=== PATIENT | male | born 1955 | race Caucasian/White ===

== ENCOUNTER 2017-04-06 08:22 | Emergency (ER) | payer OTHER ==
--- NOTE | 2017-04-06 08:36 | ED GENERAL ADULT ---
See Addendum History of Present Illness General Chief Complaint: Fall Stated Complaint: FALL LFT KNEE SURG LAST WEEK AT [facility] Source: patient Exam Limitations: no limitations Vital Signs & Intake/Output Vital Signs & Intake/Output Vital Signs Date Time Temp Pulse Resp B/P B/P Pulse O2 O2 Flow FiO2 Mean Ox Delivery Rate 04/06 1208 97.2 80 18 101/57 96 Room Air 04/06 1039 96.2 75 18 104/66 96 Room Air 04/06 0922 97.2 78 22 108/64 96 Room Air 04/06 0842 Room Air Room Air 04/06 0827 98.4 85 16 100/60 97 Room Air Allergies Coded Allergies: No Known Allergies (04/06/17) Reconcile Medications Acetaminophen 500 MG TABLET 2 TAB PO Q8P PRN PAIN (Reported) Ascorbate Calcium (Vitamin C) 500 MG TABLET 1 TAB PO BID VITAMIN SUPPORT ( Reported) Aspirin (Ecotrin*) 81 MG TABLET.DR 1 TAB PO DAILY HEART HEALTH (Reported) Ipratropium Anson 21 MCG (0.03 %) SPRAY 2 SPRAY ROLANDO BID BREATHING PROBLEMS (Reported) Meloxicam 15 MG TABLET 1 TAB PO DAILY PAIN (Reported) Methocarbamol (Robaxin-750) 750 MG TABLET 1 TAB PO TID MUSCLE SPASMS ( Reported) Multivitamin (Daily Multiple Vitamin) 1 EACH TABLET 1 TAB PO DAILY VITAMIN SUPPORT (Reported) Oxycodone HCl 5 MG TABLET 1-2 TAB PO Q4 HRS NEEDED PRN PAIN (Reported) Sennosides/Docusate Sodium (Senna Plus Tablet) 8.6 MG-50 MG TABLET 1-2 TAB PO BIDP PRN CONSTIPATION (Reported) Triage Note: PT TO ED S/P FALL OUTSIDE. STATES HE HAD LT KNEE SURGERY ON Mar AT [facility]. REPORTS HE HAS BEEN DOING RANGE OF MOTION AND WHEN HE FELL, FELT LIKE HIS KNEE WENT PAST 90 DEGREES AND THE WOUND SPLIT OPEN. NOT VISUALIZED IN TRIAGE. PT CALLED SURGEON AND TOLD TO GO TO [facility], BUT EASIER TO COME HERE FIRST TO SEE IF IT NEEDS TO BE CUT OPEN. Triage Nurses Notes Reviewed? yes Onset: Abrupt Duration: hour(s): Timing: recent history HPI: 04/06/17 9:29 AM 61-year-old male presents to the emergency department for left knee pain. The patient is status post left knee replacement by Dr. Hinds at [facility] approximately one week ago. He was doing well and in fact they were canceling his physical therapy. This morning at approximately 8:30 AM he slipped on the ice and flexed his knee. The wound opened and he had increasing pain and felt knee instability. He denies head injury neck pain or other complaints. The onset of the symptoms was abrupt, the duration was just this morning, the severity is significant; as his symptoms required him to come to the emergency department for care. Past History Travel History Traveled to [facility] past 21 day No Medical History Any Pertinent Medical History? see below for history Musculoskeletal: chronic back pain, sciatica Surgical History Surgical History: s/p left knee replacement Psychosocial History What is your primary language Setswana Tobacco Use: Never used Family History Hx Contributory? No Review of Systems Review of Systems Constitutional: Denies: fever. EENTM: Reports: no symptoms. Respiratory: Denies: short of breath. Cardiovascular: Denies: chest pain. GI: Reports: no symptoms. Genitourinary: Reports: no symptoms. Musculoskeletal: Reports: see HPI. Skin: Reports: see HPI. Neurological/Psychological: Reports: no symptoms. Hematologic/Endocrine: Reports: see HPI. Immunologic/Allergic: Reports: no symptoms. Physical Exam Physical Exam General Appearance: well developed/nourished, alert, awake, anxious, mild distress Head: atraumatic, normal appearance Eyes: Bilateral: normal appearance, PERRL, EOMI. Ears, Nose, Throat: normal pharynx, normal ENT inspection Neck: normal inspection, supple, full range of motion Respiratory: normal breath sounds, chest non-tender, no respiratory distress Cardiovascular: regular rate/rhythm Peripheral Pulses: 4+ dorsalis pedis (L) Gastrointestinal: non-tender Back: decreased range of motion Extremities: tenderness Neurologic/Psych: no motor/sensory deficits, awake, alert, oriented x 3 Skin: open lac left knee Comments: Physical examination of the left knee reveals ecchymosis to the left leg. He has an excellent left dorsalis pedis pulse. He has full range of motion to the left knee. There is no objective ligament instability. He does have a healing postop wound. There is some minimal dehiscence in the superior aspect. Steri- Strips were applied and a pressure dressing. Core Measures ACS in differential dx? No CVA/TIA Diagnosis: No Sepsis Present: No Sepsis Focused Exam Completed? No Progress Differential Diagnoses I considered the following diagnoses in my evaluation of the patient: [Fracture, dislocation, ligament injury] Plan of Care: Orders Procedure Date/time Status CASE MANAGEMENT CONSULT 04/06 1037 Active Durable Medical Equipment 04/06 1000 Active Initial ED EKG: none Departure Departure Disposition: STILL A PATIENT Condition: Stable Clinical Impression Primary Impression: Knee injury Referrals: Napoleon RADER,Yunior Oliveira (PCP/Family) Departure Forms: Customer Survey General Discharge Information Comments PATIENT: RENETTA PETERSON JR PRESENT AGE: 61 PATIENT ACCOUNT NO: [id number] : 56 LOCATION: [facility] ORDERING PHYSICIAN: Dewayne Ruiz DO SERVICE DATE: 04/06/17 EXAM TYPE: RAD - XRY-KNEE COMPLETE LEFT EXAMINATION: XR KNEE, LEFT CLINICAL INFORMATION: Fall, status post knee replacement one week ago. COMPARISON: None TECHNIQUE: Four views of the left knee. FINDINGS: Soft tissue swelling is demonstrated in the distal thigh and proximal calf with mild anterior subcutaneous emphysema in this postoperative patient. Alignment of the tricompartmental total knee arthroplasty is normal. No acute fracture or dislocation. IMPRESSION: Mild soft tissue swelling and mild residual anterior subcutaneous emphysema; correlate with any signs of infection versus postoperative change. No acute osseous findings. Normal alignment of the tricompartmental total knee arthroplasty. DICTATED BY: Jeffrey Gilmore MD DATE/TIME DICTATED:04/06/17927 SPRAY MACHINE OPERATOR:NICK DATE/TIME TRANSCRIBED:04/06/17927 CONFIDENTIAL, DO NOT COPY WITHOUT APPROPRIATE AUTHORIZATION. <Electronically signed in Other Vendor System> SIGNED BY: Jeffrey Gilmore MD 04/06/17 0934 IMPRESSION: Normal alignment. Soft tissue swelling. Corticated changes at the medial malleolus and linear density without swelling dorsal to the talus are likely sequela of prior injury. No discrete additional fractures are seen. DICTATED BY: Jeffrey Gilmore MD DATE/TIME DICTATED:04/06/171137 SPRAY MACHINE OPERATOR:GEORGE DATE/TIME TRANSCRIBED:04/06/171137 CONFIDENTIAL, DO NOT COPY WITHOUT APPROPRIATE AUTHORIZATION. <Electronically signed in Other Vendor System> SIGNED BY: Jeffrey Gilmore MD 04/06/17 1144 04/06/17 Dr. Hinds's PA Ramos called me back and requested that we transfer the patient to [place] for to take the patient to the OR washout the left knee. Critical Care Note Critical Care Note Critical Care Time: non-applicable
[2017-04-06] MEDS ORDERED: ACETAMINOPHEN500 M4 PO (08:45)
[2017-04-06] MEDS ORDERED: VITAMIN C500 M6 PO (08:46)
[2017-04-06] MEDS ORDERED: ASPIRIN EC81 M1 PO (08:47)
[2017-04-06] MEDS ORDERED: OXYCODONE HCL5 M1 PO (08:48)
[2017-04-06] MEDS ORDERED: ROBAXIN-750750 M1 PO (08:48)
[2017-04-06] MEDS ORDERED: DAILY MULTIPLE1 EACH PO (08:49)
[2017-04-06] MEDS ORDERED: SENNA PLUS TAB1 EACH PO (08:49)
[2017-04-06] MEDS ORDERED: MELOXICAM15 M1 PO (08:51)
[2017-04-06] MEDS ORDERED: IPRATROPIUM BRO30 M2 NAS (08:52)
--- NOTE | 2017-04-06 09:34 | RADIOLOGY REPORT ---
EXAMINATION: XR KNEE, LEFT CLINICAL INFORMATION: Fall, status post knee replacement one week ago. COMPARISON: None TECHNIQUE: Four views of the left knee. FINDINGS: Soft tissue swelling is demonstrated in the distal thigh and proximal calf with mild anterior subcutaneous emphysema in this postoperative patient. Alignment of the tricompartmental total knee arthroplasty is normal. No acute fracture or dislocation. IMPRESSION: Mild soft tissue swelling and mild residual anterior subcutaneous emphysema; correlate with any signs of infection versus postoperative change. No acute osseous findings. Normal alignment of the tricompartmental total knee arthroplasty.
--- NOTE | 2017-04-06 11:44 | RADIOLOGY REPORT ---
EXAMINATION: XR ANKLE, LEFT CLINICAL INFORMATION: Left ankle pain. Rule out fracture. COMPARISON: None TECHNIQUE: 3 views of the left ankle. FINDINGS: Prior healed fracture of the distal tibial diaphysis with solid bridging callus. Corticated densities are seen at the tip of the medial malleolus presumably reflective of prior trauma. The ankle mortise is symmetric. No acute ankle fracture or dislocation is seen. A corticated fracture fragment is identified dorsal to the distal talar neck without significant overlying soft tissue swelling which may reflect sequela of prior trauma. Moderate distal tibia and fibula ankle swelling is seen. IMPRESSION: Normal alignment. Soft tissue swelling. Corticated changes at the medial malleolus and linear density without swelling dorsal to the talus are likely sequela of prior injury. No discrete additional fractures are seen.
[2017-04-06 12:08] VITALS: BP 101/57
== END 2017-04-06 14:14 | disposition short-term general hospital (02) ==
LOC: ERH 08:22
DX: S89.92XA Unspecified injury of left lower leg, initial encounter (principal); W00.0XXA Fall on same level due to ice and snow, initial encounter; Y93.01 Activity, walking, marching and hiking; Y92.9 Unspecified place or not applicable
CPT/HCPCS: 73562-LT; 73610-LT